=== PATIENT | male | born 1970 | race Caucasian/White ===

== ENCOUNTER 2024-05-10 02:14 | Emergency (ER) | payer BC, SELFPAY ==
[2024-05-10 02:18] VITALS: BP 164/98
[2024-05-10 02:30] VITALS: BMI 33.2
--- NOTE | 2024-05-10 02:45 | ED.GENMED ---
History of Present Illness
General
Chief Complaint: Headache
Source: patient and spouse
Exam Limitations: none
Time Seen by Provider: 05/10/24 02:24
Nursing documentation reviewed up to this point in time: agreed with
History of Present Illness
History of Present Illness:
This is a 54-year-old male who presents to the sudden onset sharp left posterior head pain that began just prior to arrival. He states that he got up to go to the bathroom and developed this intense pain. He states that sitting down exacerbates
the pain while standing up alleviates it slightly. Denies any other alleviating or exacerbating symptoms. Denies photophobia. Has a very remote history of migraine headaches but states that this does not feel similar
Past History
Past History
ED Past Medical History: Other (Migraines)
ED Past Surgical History: None
Social History
Tobacco: Former smoker
Personal:
Living: with family
Employment: Employed
Review of Systems
Review of Systems
Allergies reviewed?: Yes
Other source history: family
All Other Systems: ROS reviewed and negative except as documented in HPI and ROS
Constitutional: Reports no symptoms
EENT: Reports no symptoms
Respiratory: Reports no symptoms
Cardiac: Reports no symptoms
ABD/GI: Reports no symptoms
: Reports no symptoms
Musculoskeletal: Reports no symptoms
Skin: Reports no symptoms
Neurological: Reports headache; Denies weakness or numbness
Endocrine: Reports no symptoms
Hematologic/Lymphatic: Reports no symptoms
Psychiatric: Reports anxiety
Phy Exam
General Physical Exam
General Presentation: well appearing and moderate distress
General age: appears stated age
General Skin: warm and dry
General Habitus: normal
General Mental: alert
General Hydration: appears well hydrated
ENT Exam
ENT Exam: EOMI, pharynx normal, neck supple and normocephalic
Eye Exam
Eye Exam: PERRL, cornea clear and conjunctiva normal
Cardiovascular Exam
Cardiovascular Exam: regular rate/rhythm, no edema, no murmur and normal peripheral pulses
Pulmonary Exam
Pulmonary Exam: lungs clear, no respiratory distress, no rales, no crackles, no rhonchi, no stridor, no wheezing and no cough
Gastrointestinal Exam
Gastrointestinal Exam: normal bowel sounds, non tender, soft, no organomegaly, no pulsatile mass and non distended
Neurological Exam
Neurological Exam: alert, oriented x3, no motor deficits and speech normal
Musculoskeletal Exam
Musculoskeletal Exam: full ROM and no edema
Skin Exam
Skin Exam: normal color, warm/dry, no rash and no petechia
Psychiatric Exam
Psychiatric Exam: normal mood/affect
Course
Orders/Labs/Results
Orders:
Orders
05/10/24 02:22
CT Head & Neck Angio W/wo IV Urgent
Comment:
Reason For Exam: sudden posterior head pain
05/10/24 02:33
Complete Blood Count/With Diff Urgent
Comprehensive Metabolic Panel Urgent
Erythrocyte Sed Rate Urgent
PTT Urgent
Prothrombin Time Urgent
05/10/24 03:07
0.9% Sodium Chloride 1000 ml [Nss] 1,000 ml IV BOLUS
05/10/24 03:12
Dexamethasone Sod Phosphate [Decadron] 10 mg IV NOW STA
Diphenhydramine [Benadryl] 25 mg IV NOW STA
Ketorolac [Toradol] 15 mg IV NOW STA
Metoclopramide [Reglan] 10 mg IV NOW STA
05/10/24 03:57
CSF Cell Count Urgent
Date Specimen was Collected: 05/10/24
Time Specimen was Collected: 03:54
CSF Tube Number: 1
Comment: Tube #1
CSF Cell Count Urgent
Date Specimen was Collected: 05/10/24
Time Specimen was Collected: 03:54
CSF Tube Number: 4
Comment: Tube #4
Spinal Fluid Glucose Urgent
Date Specimen was Collected: 05/10/24
Time Specimen was Collected: 03:54
CSF Tube Number: 1
Spinal Fluid Protein Urgent
Date Specimen was Collected: 05/10/24
Time Specimen was Collected: 03:54
CSF Tube Number: 1
CSF Culture with Gram Stain Urgent
[facility] Source: [facility]
Specimen Description:
Date Specimen was Collected: 05/10/24
Time Specimen was Collected: 03:54
Abnormal Lab Results
05/10/24 05/10/24
02:33 03:57
MCH 31.2 H pg
(27.0-31.0)
Carbon Dioxide 31 H mmol/L
(22-30)
BUN 21 H mg/dl
(9-20)
Glucose 133 H mg/dl
(70-99)
CSF Glucose 88 H mg/dl
(40-70)
05/10/24 02:33
05/10/24 02:33
Vital Signs
Initial and Last Documented VS:
Initial Vital Signs
Temp Pulse Resp BP Pulse Ox
98.2 F 66 26 164/98 100
05/10/24 02:18 05/10/24 02:18 05/10/24 02:18 05/10/24 02:18 05/10/24 02:18
Last Documented Vital Signs
Temp Pulse Resp BP Pulse Ox
98.2 F 66 26 143/89 94
05/10/24 02:18 05/10/24 02:18 05/10/24 02:18 05/10/24 03:00 05/10/24 05:15
Procedures
Lumbar Puncture
Indication for procedure:: Sudden onset headache
Procedure completed by: Myself
Consent form signed: Yes
Anesthesia/sedation: 1% Lidocaine
Preparation: cleaned with Betadine
Position: sitting
Needle Size: 22 gauge
Needle Type: Lumbar Needle
Number of attempts: 1
Dressing applied to puncture site: bandaid
Complications: none
Additional information:
Patient tolerated procedure well with no immediate adverse effects.
*Critical Care Note
Total Time (30-74mins, 75-104mins- exclusive of procedures): Not Applicable
Update Note
Update Note:
Patient ambulated around the department with no issue. He states that his symptoms have completely resolved by the time of discharge. Discussed results of the lumbar puncture with patient and discussed return to ER instructions at length. They
will return if needed.
ED Attending Note
-
Portions of this chart may have been created with voice recognition software.� Occasional wrong word or��sound alike� substitutions may have occurred due to the inherent limitations of voice recognition software.
Discharge Plan
Departure
Patient Disposition: Home (Routine Discharge)
Patient with high blood pressure during this ER visit?: Yes
Discharge Problem:
Headache
Instructions: BLOOD PRESSURE, Headache, Adult (DC)
Prescriptions:
No Action
Claritin:
1 tab PO DAILY PRN (Reason: allergies)
Excedrin
1 tab PO PRN PRN (Reason: headache)
naproxen sodium [Aleve] 220 MG tablet
220 mg PO DAILYPRN PRN (Reason: headeache/fever)
dextroamphetamine-amphetamine [Adderall XR] 30 MG capsule,extended release 24hr
30 mg PO DAILY
Referrals:
UNKNOWN - PT DOES,NOT KNOW [Unknown Provider] -
Natanael Angelo MD [Active] - As needed
Activity Restrictions/Additional Instructions:
It was a pleasure meeting you and taking part in your care. We hope for your continued healing and wellness.
Please read discharge instructions in their entirety. However, they are for general education and may not describe your exact diagnosis at discharge. Information on your ER visit and medical conditions were discussed with you along with appropriate
follow up information...
If indicated, please take your medications as instructed and indicated on discharge paperwork.
Please schedule a follow up appointment as directed. Call to schedule an appointment
Please return to the emergency department with ANY change in, persisting, or worsening of symptoms. If any of your symptoms do not improve, or persist, or become more severe within 6-12 hours, please return to the emergency department for further
care.
Please return to the emergency department if you develop a headache, neck pain/stiffness, fever greater than 100.4F, chest pain, shortness of breath, persistent nausea, vomiting, slurred speech, difficulty walking, numbness/tingling, weakness, signs
of infection or any other symptoms that are worrisome to you.
If you have any questions or concerns please do not hesitate to call the Hospital at or E-mail me directly at [email or web address]
Interventions
Interventions:
*Risk Screen - Suicide Last Done: 05/10/24 02:18
*General Assessment Last Done: 05/10/24 02:30
*Neglect/Abuse Screening Last Done: 05/10/24 02:18
ED- Fall Risk Assessment Last Done: 05/10/24 02:32
*ED COVID-19 Vaccine History Last Done: 05/10/24 02:30
*Nursing Disposition Last Done: 05/10/24 05:50
ED- Neurological Assessment Last Done: 05/10/24 02:30
Discharge Date and Time
Discharge Date/Time: 05/10/24 05:50
Print Language: GABONESE
[2024-05-10 02:46] VITALS: BP 158/92
[2024-05-10 03:00] VITALS: BP 143/89
[2024-05-10] MEDS: NSS 1000 IV (03:11)
[2024-05-10] MEDS: DECADRON 10 MG IV (03:18)
[2024-05-10] MEDS: BENADRYL 25 MG IV (03:18)
[2024-05-10] MEDS: TORADOL 15 MG IV (03:19)
[2024-05-10] MEDS: REGLAN 10 MG IV (03:19)
[2024-05-10 03:21] LABS: Hematocrit 46.8 % (39.0-52.0); Hemoglobin 16.3 g/dL (13.0-18.0); Mean Corp Hgb Conc. 34.8 g/dL (33.0-37.0); Mean Corpuscular Hgb 31.2 pg (27.0-31.0); Mean Corpuscular Volume 89.5 fL (80.0-94.0); Mean Platelet Volume 9.7 fL (7.4-10.4); Platelet Count 150 10^3/uL (130-400); Red Blood Cell Count 5.23 10^6/uL (4.70-6.10); Red Cell Dist. Width 12.7 % (11.5-14.5); White Blood Cell Count 6.5 10^3/uL (4.8-10.8)
[2024-05-10 03:25] LABS: INR 1.06; PT 14.1 Sec (11.4-14.6)
[2024-05-10 03:26] LABS: APTT 32.6 Sec (23.4-35.0)
[2024-05-10 03:29] LABS: ALT (SGPT) 48 U/L (0-50); AST (SGOT) 27 U/L (17-59); Alkaline Phosphatase 66 U/L (38-126); Blood Urea Nitrogen 21 mg/dl (9-20); Carbon Dioxide 31 mmol/L (22-30); Chloride 103 mmol/L (98-107); Estimated Creatinine Clearance > 125 ml/min; Glucose 133 mg/dl (70-99); Potassium 3.7 mmol/L (3.5-5.1); Sodium 145 mmol/L (135-145); Total Bilirubin 0.5 mg/dl (0.2-1.3); Total Protein 7.5 g/dl (6.3-8.2); eGFR > 60.00
[2024-05-10 03:47] LABS: Erythrocyte Sed Rate 1 mm/hour (0-20)
[2024-05-10 04:42] LABS: Spinal Fluid Glucose 88 mg/dl (40-70); Spinal Fluid Protein 55 mg/dl (12-60)
[2024-05-10 06:55] LABS: % Basophils 0.3 % (0-2); % Immature Granulocytes 0.2 % (0-0.5); % Lymphocytes 50.4 % (20.5-51.1); % Monocytes 7.4 % (1.7-9.3); % Neutrophils 39.7 % (42.2-75.2); Absolute Eosinophils 0.1 10^3/uL (0-0.7); Absolute Lymphocytes 3.3 10^3/uL (1.2-3.4); Absolute Monocytes 0.5 10^3/uL (0.1-0.6); Absolute Neutrophils 2.6 10^3/uL (1.4-6.5); Nucleated Red Blood Cells % 0 % (-)
[2024-05-10 07:16] LABS: CSF Clarity Clear; CSF Color Colorless; CSF Tube # 1
[2024-05-10 07:17] LABS: Red Cell Count/CSF 46 mm^3; White Cell Count/CSF 1 mm^3 (0-5)
[2024-05-10 07:18] LABS: CSF Clarity Clear; CSF Color Colorless; CSF Tube # 4; Red Cell Count/CSF 0 mm^3; White Cell Count/CSF 1 mm^3 (0-5)
== END 2024-05-10 05:50 | disposition home or self-care (01) ==
LOC: EMR 02:14
PROVIDERS: EMERGENCY PHYSICIAN Student in an Organized Health Care Education/Training Program; FAMILY PHYSICIAN Nurse Practitioner Family
DX: R51.9 Headache, unspecified (principal); Z87.891 Personal history of nicotine dependence
CPT/HCPCS: 62270; 96374; 96375; 96361; 99285; 70496; 70498; 80053; 82945; 84157; 85025; 85610; 85652; 85730; 87015; 87070; 87205; 89051; Q9967